=== PATIENT | male | born 1955 | race Hispanic/Latino ===

== ENCOUNTER → 2018-01-15 | Outpatient (CLI) | payer OTHER ==
[~2018-01-15] MED LIST: ALBUTEROL SULFATE 0.083% 2.5 MG/3 ML INH IH ONE
== END | disposition home or self-care (01) ==
LOC: RESP 10:00
PROVIDERS: ATTEND Internal Medicine
DX: R06.02 Shortness of breath (principal); R06.00 Dyspnea, unspecified
CPT/HCPCS: 94060; 94727; 94729

== ENCOUNTER → 2018-12-19 | Outpatient (CLI) | payer OTHER | END | disposition home or self-care (01) | LOC: SHCH 09:10 | PROVIDERS: ATTEND Internal Medicine Cardiovascular Disease | DX: I11.9 Hypertensive heart disease without heart failure (principal); I20.9 Angina pectoris, unspecified | CPT/HCPCS: 93306 ==

== ENCOUNTER → 2018-12-22 | Outpatient (CLI) | payer OTHER ==
[~2018-12-22] VITALS: Ht 172.7 cm; Wt 84.4 kg
[~2018-12-22] MED LIST changes: -ALBUTEROL SULFATE 0.083% 2.5 MG/3 ML INH IH ONE; +REGADENOSON 0.4 MG/5 ML PF SYG IVP SCH
== END | disposition home or self-care (01) ==
LOC: SHCH 08:14
PROVIDERS: ATTEND Internal Medicine Cardiovascular Disease
DX: I25.89 Other forms of chronic ischemic heart disease (principal)
CPT/HCPCS: 78452; 93017; 96374; A9500 ×2; J2785

== ENCOUNTER → 2019-08-04 | Outpatient (CLI) | payer OTHER ==
[~2019-08-04] MED LIST changes: +ASPI-1026 PO; +CARV3.12 PO; +CHOL500045 PO; +CITA10TA13 PO; +CLOP75TA32 PO; +LISI1TAB28 PO; +METF-446 PO; +NITR0.4T50 SL; +OMEG-148 PO; -REGADENOSON 0.4 MG/5 ML PF SYG IVP SCH; +ROSU20TA31 PO
== END | disposition home or self-care (01) ==
LOC: RAH 10:31
PROVIDERS: ATTEND Internal Medicine
DX: Z87.891 Personal history of nicotine dependence (principal)
CPT/HCPCS: 76775

== ENCOUNTER → 2020-11-22 | Outpatient (CLI) | payer OTHER ==
[~2020-11-22] MED LIST changes: +0.9%NACL 1000ML 0 ML IV ONE; +AEC81 PO; -ASPI-1026 PO; -CARV3.12 PO; +CARV6.25 PO; -CHOL500045 PO; +FLUT16H NASAL; +ISOS60TA77 PO; -LISI1TAB28 PO; +LISI1TAB51 PO; +MV-M1TAB20 PO; +TRAM50TA4 PO; +VITAMIN D3 PO
== END | disposition home or self-care (01) ==
LOC: ENDO 05:56 → DAH 05:56 → EDSTATUS 08:20 → DAH 14:16
PROVIDERS: ATTEND Internal Medicine
DX: Z86.010 Personal history of colon polyps (principal); Z20.822 Contact with and (suspected) exposure to COVID-19; Z79.899 Other long term (current) drug therapy
CPT/HCPCS: 82948; 87635; C9803; J7030

== ENCOUNTER 2020-11-28 07:58 | Day surgery (SDC) | payer OTHER ==
[2020-11-24 10:28] LABS: EOSINOPHILS % (AUTO) 12.9 % (0.0-8.0); HEMATOCRIT 36.2 % (42-54); LYMPHOCYTES % (AUTO) 21.4 % (21.0-51.0); MEAN CORPUSCULAR HEMOGLOBIN 29.4 pg (27.0-33.0); MEAN CORPUSCULAR HGB CONC 32.9 g/dL (32.0-36.0); MEAN CORPUSCULAR VOLUME 89.4 fL (79-99); MONOCYTES % (AUTO) 8.1 % (3.0-13.0); NEUTROPHILS % (AUTO) 56.4 % (40.0-77.0); PLATELET COUNT (AUTO) 268 K/uL (130-400); RED BLOOD CELL COUNT(AUTO) 4.05 MIL/uL (4.50-6.20); RED CELL DISTRIBUTION WIDTH 12.5 % (11.0-15.5); WHITE BLOOD COUNT (AUTO) 10.6 K/uL (4.8-10.8)
[2020-11-24 10:34] LABS: APPEARANCE,URINE Clear (CLEAR); BILIRUBIN,URINE Negative (NEGATIVE); COLOR,URINE Yellow (YELLOW); GLUCOSE, URINE (UA) Negative (NEGATIVE); KETONES,URINE Negative (NEGATIVE); LEUKOCYTE ESTERASE ,URINE Negative (NEGATIVE); NITRATE,URINE Negative (NEGATIVE); OCCULT BLOOD,URINE Trace (NEGATIVE); PROTEIN,URINE POS 2+ mg/dL (NEGATIVE); UROBILINOGEN,URINE 0.2 mg/dL (0.2-1.0)
[2020-11-24 10:42] LABS: INR 1.02 (0.85-1.15); PROTHROMBIN TIME 11.1 SEC (9.6-11.6)
[2020-11-24 10:43] LABS: CREATININE 1.5 mg/dL (0.5-1.5); PARTIAL THROMBOPLASTIN TIME 30.5 SEC (26.3-35.5); POTASSIUM 4.6 mmol/L (3.5-5.1)
[2020-11-24 10:48] LABS: BACTERIA,URINE Rare /HPF (None Seen); RBC,URINE 0-1 /HPF (0-1); SQUAMOUS EPITHELIAL CELL,UR Rare /HPF (0-2); WBC,URINE 0-1 /HPF (0-1)
[2020-11-25 11:47] VITALS: BP 142/87
[~2020-11-28] VITALS: Ht 168.9 cm; Wt 79.4 kg
[2020-11-28] VITALS (10 sets, daily range): BP systolic 109–187; BP diastolic 62–95
[~2020-11-28 07:58] MED LIST changes: +0.9% NACL 500ML IV.SOLN 500 ML IV SCH; -0.9%NACL 1000ML 0 ML IV ONE; -VITAMIN D3 PO
[2020-11-28] MEDS ORDERED: 0.9%NACL 1000ML 1,000 ML IV ONE (08:30)
[2020-11-28] MEDS ORDERED: IOHEXOL 350 MG/ML 100ML INFUS..BTL IV ONE ×2 (10:23→11:24)
[2020-11-28] MEDS ORDERED: LIDOCAINE HCL 400MG/20ML VIAL ONE (10:23)
[2020-11-28] MEDS ORDERED: IOHEXOL-350 50ML VIAL IV ONE (10:23)
[2020-11-28] MEDS ORDERED: NITROGLYCERIN 2 MG VIAL IV ONE (10:23)
[2020-11-28] MEDS ORDERED: MIDAZOLAM HCL 1 MG/ML 2ML VIAL ONE (11:13)
[2020-11-28] MEDS ORDERED: FENTANYL CITRATE PF 50 MCG/1 ML 2ML VIAL ONE (11:13)
[2020-11-28] MEDS ORDERED: NITROGLYCERIN 0.4 MG SL TAB SL PRN (12:00)
[2020-11-28] MEDS ORDERED: 0.9%NACL 1000ML 1,000 ML IV SCH (12:00)
[2020-11-28] MEDS ORDERED: DEXTROSE 50%-WATER 50 ML DISP.SYRIN IV PRN (12:00)
[2020-11-28] MEDS ORDERED: GLUCAGON 1MG KIT 1 MG ML IM PRN (12:00)
[2020-11-28] MEDS: HYDRALAZINE 20MG/ML VIAL IV PRN ×2 (13:23→14:27)
[2020-11-28] MEDS ORDERED: INSULIN HUMULIN R 100 UNIT/ML 3ML SQ SCH (16:30)
[2020-12-04] MEDS ORDERED: PANT20TA PO (12:12)
[2020-12-04] MEDS ORDERED: CLOP75TA32 PO (12:12)
[2020-12-04] MEDS ORDERED: HYDR12.54 PO (12:12)
[2020-12-04] MEDS ORDERED: LISI-809 PO (12:12)
[2020-12-04] MEDS ORDERED: TRAM50TA4 PO (12:12)
== END 2020-11-28 16:30 | disposition home or self-care (01) ==
LOC: DAH 07:58
PROVIDERS: ATTEND Internal Medicine Cardiovascular Disease
DX: I25.119 Atherosclerotic heart disease of native coronary artery with unspecified angina pectoris (principal); Z20.822 Contact with and (suspected) exposure to COVID-19; I25.82 Chronic total occlusion of coronary artery; I25.5 Ischemic cardiomyopathy; I11.0 Hypertensive heart disease with heart failure; I50.43 Acute on chronic combined systolic (congestive) and diastolic (congestive) heart failure; E11.51 Type 2 diabetes mellitus with diabetic peripheral angiopathy without gangrene; I25.2 Old myocardial infarction; E78.5 Hyperlipidemia, unspecified; E66.3 Overweight; J84.10 Pulmonary fibrosis, unspecified; G60.8 Other hereditary and idiopathic neuropathies; Z79.01 Long term (current) use of anticoagulants; Z87.891 Personal history of nicotine dependence; Z79.4 Long term (current) use of insulin; Z79.82 Long term (current) use of aspirin; Z82.49 Family history of ischemic heart disease and other diseases of the circulatory system; Z83.3 Family history of diabetes mellitus; Z82.3 Family history of stroke; Z80.9 Family history of malignant neoplasm, unspecified; Z68.26 Body mass index [BMI] 26.0-26.9, adult; Z79.02 Long term (current) use of antithrombotics/antiplatelets; Z95.5 Presence of coronary angioplasty implant and graft
CPT/HCPCS: 36415; 71045; 80048; 81001; 82948 ×2; 85025; 85610; 85730; 87426; 93005; 93460; A4215 ×2; A4216; A4221; A4222; A4223 ×3; A4606; A4663; C1760; C1894 ×3; J0360; J1644; J2250; J3010; J3490 ×2; J7030; Q9965; Q9967 ×2; 96360; 96361; 99156; 99157

== ENCOUNTER → 2021-08-28 | Outpatient (CLI) | payer OTHER ==
[~2021-08-28] MED LIST changes: -0.9% NACL 500ML IV.SOLN 500 ML IV SCH; +HYDR12.54 PO; -ISOS60TA77 PO; -LISI1TAB51 PO; +LISI5TAB21 PO; -METF-446 PO; -NITR0.4T50 SL; +PANT20TA PO
== END | disposition home or self-care (01) ==
LOC: SHCH 14:50
PROVIDERS: ATTEND Internal Medicine Cardiovascular Disease
DX: R06.02 Shortness of breath (principal)
CPT/HCPCS: 93306

== ENCOUNTER → 2023-08-28 | Outpatient (CLI) | payer OTHER ==
[~2023-08-28] MED LIST changes: -HYDR12.54 PO; -LISI5TAB21 PO; -ROSU20TA31 PO; +ROSU20TA73 PO; +TAMS-1 PO
== END | disposition home or self-care (01) ==
LOC: RAH 11:15
PROVIDERS: ATTEND Nurse Practitioner Family
DX: M47.816 Spondylosis without myelopathy or radiculopathy, lumbar region (principal); M25.551 Pain in right hip; J84.10 Pulmonary fibrosis, unspecified; R07.81 Pleurodynia; M25.552 Pain in left hip; R91.8 Other nonspecific abnormal finding of lung field; M48.07 Spinal stenosis, lumbosacral region
CPT/HCPCS: 71101; 72100; 73521

== ENCOUNTER → 2023-10-25 | Outpatient (CLI) | payer OTHER | END | disposition home or self-care (01) | LOC: SHCH 11:03 | PROVIDERS: ATTEND Internal Medicine Cardiovascular Disease | DX: I08.0 Rheumatic disorders of both mitral and aortic valves (principal); R06.00 Dyspnea, unspecified; I25.10 Atherosclerotic heart disease of native coronary artery without angina pectoris | CPT/HCPCS: 93306 ==

== ENCOUNTER → 2023-11-07 | Outpatient (CLI) | payer OTHER | END | disposition home or self-care (01) | LOC: SHCH 10:07 | PROVIDERS: ATTEND Internal Medicine Cardiovascular Disease | DX: I87.2 Venous insufficiency (chronic) (peripheral) (principal); I87.1 Compression of vein; I10 Essential (primary) hypertension; E78.5 Hyperlipidemia, unspecified; Z95.1 Presence of aortocoronary bypass graft; I25.2 Old myocardial infarction; I25.10 Atherosclerotic heart disease of native coronary artery without angina pectoris; J84.10 Pulmonary fibrosis, unspecified; N28.9 Disorder of kidney and ureter, unspecified; R07.9 Chest pain, unspecified; R06.02 Shortness of breath; Z99.81 Dependence on supplemental oxygen; Z79.899 Other long term (current) drug therapy | CPT/HCPCS: 93970 ==

== ENCOUNTER → 2024-03-19 | Outpatient (CLI) | payer OTHER ==
[~2024-03-19] MED LIST changes: -ROSU20TA73 PO; +ROSU20TA98 PO
--- NOTE | 2024-03-19 12:34 | HMCIMG ---
CT ABDOMEN/PELVIS W/O CONTRAST HISTORY: Dominant pain COMPARISON: None TECHNIQUE: Multiple sequential axial images of the abdomen and pelvis were obtained from the dome of the diaphragm through symphysis pubis. Patient was not given contrast through intravenous route. Oral contrast was not given. FINDINGS: No pleural effusion is seen bilaterally. Bilateral interstitial fibrosis with bronchiectasis. Poststernotomy changes are seen. Coronary arterial calcifications are seen. Degenerative changes of the thoracolumbar spine are present. The heart is borderline enlarged. Calcified granuloma are seen in the left lower lobe. Stomach is poorly distended. The liver, spleen, adrenal glands and pancreas are unremarkable. There is no evidence of hydronephrosis bilaterally. No evidence of renal stone is seen. There is diverticulosis. Fecal material is seen in the colon. There are normal size retroperitoneal and mesenteric lymph nodes. No ascites is seen. Atherosclerotic changes are present. Pelvic sidewalls are symmetric bilaterally. Bladder is poorly distended with apparent wall thickening. If there is clinical suspicion for cystitis, urinalysis correlation may be helpful. IMPRESSION: 1. No ascites is seen. Poorly distended bladder with wall thickening. CT was performed with one or more following dose reduction techniques: automated exposure control, adjustment of the mA and kv according to patient's size, or use of a iterative reconstruction technique.
== END | disposition home or self-care (01) ==
LOC: RAH 09:00
PROVIDERS: ATTEND Internal Medicine
DX: J47.9 Bronchiectasis, uncomplicated (principal); R10.9 Unspecified abdominal pain; R19.5 Other fecal abnormalities; I25.10 Atherosclerotic heart disease of native coronary artery without angina pectoris; J98.4 Other disorders of lung; M47.815 Spondylosis without myelopathy or radiculopathy, thoracolumbar region; J84.10 Pulmonary fibrosis, unspecified; I70.0 Atherosclerosis of aorta
CPT/HCPCS: 74176

== ENCOUNTER → 2024-03-30 | Outpatient (CLI) | payer OTHER ==
--- NOTE | 2024-03-30 16:05 | HMCIMG ---
US ABDOMINAL [id number] HISTORY: Abdominal pain COMPARISON: None TECHNIQUE: Right upper quadrant abdominal ultrasound study was performed. FINDINGS: Liver measures 15.2 cm. Left hepatic lobe is not well visualized. The visualized portion of the pancreas is within normal limits. Liver is echogenic consistent with liver parenchymal disease. No gallstone is seen. Common duct measures 3 mm. No evidence of gallbladder wall thickening is seen. Right kidney measures 12.1 x 5.5 x 4.3 cm. No hydronephrosis is seen of the right kidney. The study is limited due to overlying bowel gas. IMPRESSION: 1. No gallstones or ductal dilatation is seen. 2. No hydronephrosis is seen.
== END | disposition home or self-care (01) ==
LOC: RAH 14:32
PROVIDERS: ATTEND Nurse Practitioner Family
DX: R10.11 Right upper quadrant pain (principal)
CPT/HCPCS: 76705

== ENCOUNTER → 2024-06-16 | Outpatient (CLI) | payer OTHER ==
--- NOTE | 2024-06-16 16:29 | HMCIMG ---
NUCLEAR MEDICINE GASTRIC EMPTYING STUDY INDICATION: Early satiety, nausea, and bloating RADIOPHARMACEUTICAL: Examination was performed with eggs, with 1.5 mCi 99 M technetium labeled sulfur colloid within. FINDINGS: Region of interest curves were drawn, and qualitatively, good gastric emptying noted with most of the radiotracer out of the stomach by the 90 minute riri. 50% emptying occurred at 68 minutes. IMPRESSION: Normal gastric emptying scan.
== END | disposition home or self-care (01) ==
LOC: RAH 10:36
PROVIDERS: ATTEND Internal Medicine Gastroenterology
DX: R11.0 Nausea (principal); R14.0 Abdominal distension (gaseous); R68.81 Early satiety
CPT/HCPCS: 78264; A9541